=== PATIENT | female | born 1990 | race African-American/Black ===

== ENCOUNTER 2020-07-29 10:05 | Emergency (ER) | payer BC ==
[~2020-07-29] VITALS: Ht 157.5 cm; Wt 80.0 kg
[2020-07-29 10:19] VITALS: BP 139/90
[2020-07-29] MEDS ORDERED: KETOROLAC 30MG/ML VIAL IM ONE (11:00)
== END 2020-07-29 11:21 | disposition home or self-care (01) ==
LOC: ER 10:05
DX: M25.552 Pain in left hip (principal); M25.522 Pain in left elbow; Z98.890 Other specified postprocedural states
CPT/HCPCS: 96372; 99283; J1885